=== PATIENT | male | born 1955 | race Caucasian/White ===

== ENCOUNTER 2023-08-05 22:29 | Emergency (ER) | payer OTHER ==
[~2023-08-05] VITALS: Ht 172.7 cm; Wt 99.8 kg
[~2023-08-05 22:29] MED LIST: HYDR50TA44 PO; LISI40TA13 PO; METO-304 PO; NOR10 PO; SYN50 PO
[2023-08-05 22:35] VITALS: BP_SYST 142; PULSE 88; RESP 18; TEMP 98.1; TEMP 98.7; O2SAT 95
[2023-08-06] MEDS ORDERED: CYCL10TA24 PO (01:31)
[2023-08-06] MEDS: CYCLOBENZAPRINE HCL 10 MG TABLET (FLEXERIL) PO ONE (01:32)
[2023-08-06] MEDS: OXYCODONE/ACETAMINOPHEN 5-325 TABLET PO ONE (01:33)
[2023-08-06 02:00] VITALS: BP_SYST 132; PULSE 66; RESP 20; TEMP 97.7; O2SAT 95
[2023-08-08] MEDS ORDERED: TAMS-11 PO (05:14)
[2023-08-08] MEDS ORDERED: LEVO750T64 PO (05:14)
[2023-08-08] MEDS ORDERED: SULF1TAB48 PO (05:14)
== END 2023-08-06 02:00 | disposition home or self-care (01) ==
LOC: SED 22:29
DX: K40.90 Unilateral inguinal hernia, without obstruction or gangrene, not specified as recurrent (principal); R10.32 Left lower quadrant pain; R03.0 Elevated blood-pressure reading, without diagnosis of hypertension; Z79.899 Other long term (current) drug therapy; Z79.2 Long term (current) use of antibiotics
CPT/HCPCS: 99284